=== PATIENT | male | born 1955 | race Caucasian/White ===

== ENCOUNTER 2018-10-05 11:10 | Emergency (ER) | payer OTHER ==
[2018-10-05 11:26] VITALS: TEMP 97.1
[2018-10-05] MEDS ORDERED: ALBUTEROL/IPRATROPIUM 1 VIAL SOL INH ONE (12:01)
[2018-10-05] MEDS ORDERED: ALBUTEROL/IPRATROPIUM 1 VIAL SOL ONE (12:01)
[2018-10-05 13:13] VITALS: BP 112/72; PULSE 72; RESP 18; O2SAT 94
== END 2018-10-05 13:04 | disposition home or self-care (01) | DRG 316 ==
LOC: ED 11:10
DX: R09.89 Other specified symptoms and signs involving the circulatory and respiratory systems (principal)
CPT/HCPCS: 71045; 99283; 99284